=== PATIENT | male | born 1960 | race African-American/Black ===

== ENCOUNTER 2020-06-08 13:42 | Emergency (ER) | payer OTHER ==
[~2020-06-08] VITALS: Ht 188 cm; Wt 99.8 kg
[2020-06-08 14:42] VITALS: BP 146/94
[2020-06-08 15:36] LABS: Urine Bacteria FEW /hpf (None Seen); Urine Blood TRACE /uL (Negative); Urine Specific Gravity 1.019 (1.001-1.035); Urine WBC 3 /hpf (0 - 3)
[2020-06-08] MEDS ORDERED: cefTRIAXone SOD 1,000 MG VL IM ONE (16:00)
[2020-06-08] MEDS ORDERED: AZITHROMYCIN 250 MG TAB PO ONE (16:00)
[2020-06-08] MEDS ORDERED: LIDOCAINE 1% HCL (LOCAL ANESTH.) INJ 20ML MDV IJ ONE (16:30)
== END 2020-06-08 16:48 | disposition home or self-care (01) ==
LOC: ER 13:42
DX: N39.0 Urinary tract infection, site not specified (principal); F17.210 Nicotine dependence, cigarettes, uncomplicated; Z20.2 Contact with and (suspected) exposure to infections with a predominantly sexual mode of transmission; Z91.010 Allergy to peanuts
CPT/HCPCS: 81001; 96372; 99283; J0696

== ENCOUNTER 2022-02-17 08:49 | Inpatient (IN) | payer OTHER ==
[~2022-02-17] VITALS: Ht 193 cm; Wt 102.0 kg
[2022-02-17 10:13] LABS: Basophils # (auto) 0.1 10 ^3/uL (0-0.2); Basophils % (auto) 0.6 % (0.0-2.0); Eosinophils # (auto) 0.2 10 ^3/uL (0-0.8); Eosinophils % (auto) 1.8 % (0.0-7.0); Hematocrit 42.1 % (41.0-53.0); Hemoglobin 14.4 g/dL (13.5-17.5); Lymphocytes # (auto) 2.7 10 ^3/uL (0.4-5.4); Lymphocytes % (auto) 23.6 % (10.0-50.0); Mean Corpuscular Hemoglobin 32.6 pg (28.0-32.0); Mean Corpuscular Hgb Conc. 34.3 g/dL (32.0-36.0); Mean Corpuscular Volume 95.2 fL (80.0-100.0); Monocytes # (auto) 1.1 10 ^3/uL (0-1.3); Monocytes % (auto) 9.5 % (0.0-12.0); Neutrophils # (auto) 7.4 10 ^3/uL (1.6-8.6); Neutrophils % (auto) 64.5 % (37.0-80.0); Red Blood Cells 4.42 10^6/uL (4.5-5.90); Red Cell Distribution Width 12.9 % (11.8-14.3); White Blood Cell 11.4 10^3/uL (4.4-10.8)
[2022-02-17 10:34] LABS: Albumin 4.1 g/dL (3.4-5.0); Calcium 8.9 mg/dL (8.5-10.1); Potassium 4.3 mmol/L (3.5-5.1)
[2022-02-17 10:38] LABS: BUN/Creatinine Ratio 12.3; Bilirubin, Total 0.4 mg/dL (0.2-1.0); Total Protein 7.2 g/dL (6.4-8.2)
[2022-02-17] MEDS ORDERED: cefTRIAXone 1GM/50ML D5W 50 ML IV ONE (11:15)
[2022-02-17] MEDS ORDERED: CLINDAMYCIN 600MG IV 50 ML IV ONE (11:15)
[2022-02-17] MEDS ORDERED: DEXTROSE (50%) 50ML SYRG IV PRN (12:30)
[2022-02-17] MEDS ORDERED: DOCUSATE SOD 100 MG CAP PO PRN (12:30)
[2022-02-17] MEDS ORDERED: ONDANSETRON HCL 4 MG/2 ML VIAL IV PRN (12:30)
[2022-02-17] MEDS ORDERED: MORPHINE SULFATE INJ 2 MG/ml SYRG IV PRN (12:30)
[2022-02-17 13:06] LABS: INR 1.01 (0.9-1.15)
[2022-02-17] MEDS: ACCU-CHEK COMFORT CURVE STRIP VI SCH ×2 (17:00→22:00)
[2022-02-17] MEDS: InsuLIN REG 1unit/0.01ml Soln (100units/ml) SC SCH ×2 (17:00→22:49)
[2022-02-17] MEDS: SODIUM CHLORIDE 0.9% 1,000 ML IV SCH ×2 (20:50→22:51)
[2022-02-17] MEDS: HEPARIN SODIUM (PORCINE) 5000 UNITS/ML 1ML VIAL SC SCH (22:51)
[2022-02-18] MEDS: SODIUM CHLORIDE 0.9% 1,000 ML IV SCH ×3 (05:10→22:22)
[2022-02-18 05:17] LABS: Basophils # (auto) 0 10 ^3/uL (0-0.2); Basophils % (auto) 0.5 % (0.0-2.0); Eosinophils # (auto) 0.2 10 ^3/uL (0-0.8); Eosinophils % (auto) 2.5 % (0.0-7.0); Hematocrit 37.5 % (41.0-53.0); Hemoglobin 12.9 g/dL (13.5-17.5); Lymphocytes % (auto) 33.5 % (10.0-50.0); Mean Corpuscular Hemoglobin 32.9 pg (28.0-32.0); Mean Corpuscular Hgb Conc. 34.5 g/dL (32.0-36.0); Mean Corpuscular Volume 95.2 fL (80.0-100.0); Monocytes # (auto) 0.8 10 ^3/uL (0-1.3); Monocytes % (auto) 8.5 % (0.0-12.0); Nucleated Red Blood Cells % 0.1 %; Red Blood Cells 3.94 10^6/uL (4.5-5.90); Red Cell Distribution Width 12.7 % (11.8-14.3)
[2022-02-18 05:33] LABS: Albumin 3.4 g/dL (3.4-5.0); Calcium 8.8 mg/dL (8.5-10.1)
[2022-02-18 05:37] LABS: BUN/Creatinine Ratio 13.5; Bilirubin, Total 0.5 mg/dL (0.2-1.0); Total Protein 6.7 g/dL (6.4-8.2)
[2022-02-18] MEDS: ACCU-CHEK COMFORT CURVE STRIP VI SCH ×4 (07:58→22:12)
[2022-02-18] MEDS: InsuLIN REG 1unit/0.01ml Soln (100units/ml) SC SCH ×4 (07:59→22:38)
[2022-02-18 09:45] LABS: Creatinine, Urine 156 mg/dL (30.0-125.0); Sodium Urine 59 mmol/L (40-220)
[2022-02-18] MEDS ORDERED: ENOXAPARIN SOD 40 MG/0.4 ML SYRINGE SC SCH (10:00)
[2022-02-18] MEDS: HEPARIN SODIUM (PORCINE) 5000 UNITS/ML 1ML VIAL SC SCH ×2 (10:58→22:12)
[2022-02-18 14:30] VITALS: BP 124/83
[2022-02-18] MEDS ORDERED: ACETAMINOPHEN 325 MG TAB PO PRN (16:45)
[2022-02-18 22:00] VITALS: BP 150/91
[2022-02-18] MEDS: ACETAMINOPHEN 325 MG TAB PO PRN (22:28)
[2022-02-19 05:04] VITALS: BP 110/60
[2022-02-19] MEDS: ACCU-CHEK COMFORT CURVE STRIP VI SCH ×4 (06:06→22:13)
[2022-02-19] MEDS: InsuLIN REG 1unit/0.01ml Soln (100units/ml) SC SCH ×4 (06:06→22:13)
[2022-02-19] MEDS: SODIUM CHLORIDE 0.9% 1,000 ML IV SCH ×3 (06:10→22:50)
[2022-02-19 08:00] VITALS: BP 136/82
[2022-02-19] MEDS: DAKINS QUARTER STR 0.125% (NaHypochlorite) 473 ML TOPICAL SOL TOP SCH (09:33)
[2022-02-19] MEDS: HEPARIN SODIUM (PORCINE) 5000 UNITS/ML 1ML VIAL SC SCH ×2 (09:37→22:18)
[2022-02-19 12:00] VITALS: BP 122/72
[2022-02-19] MEDS: CLINDAMYCIN 300MG IV 50 ML IV SCH ×2 (15:29→22:12)
[2022-02-19 16:00] VITALS: BP 131/78
[2022-02-19 22:00] VITALS: BP 136/89
[2022-02-20] MEDS: DAKINS QUARTER STR 0.125% (NaHypochlorite) 473 ML TOPICAL SOL TOP SCH ×3 (01:44→22:34)
[2022-02-20 05:00] VITALS: BP 129/79
[2022-02-20] MEDS: CLINDAMYCIN 300MG IV 50 ML IV SCH (06:55)
[2022-02-20] MEDS: InsuLIN REG 1unit/0.01ml Soln (100units/ml) SC SCH ×4 (06:56→22:33)
[2022-02-20] MEDS: ACCU-CHEK COMFORT CURVE STRIP VI SCH ×4 (06:57→22:00)
[2022-02-20 09:00] VITALS: BP 133/80
[2022-02-20] MEDS: SODIUM CHLORIDE 0.9% 1,000 ML IV SCH (10:30)
[2022-02-20] MEDS: cefTRIAXone 1GM/50ML D5W 50 ML IV SCH (12:53)
[2022-02-20] MEDS: FLORASTOR (S. BOULARDII) 250 MG CAP PO SCH (12:55)
[2022-02-20] MEDS: ACETAMINOPHEN 325 MG TAB PO PRN (12:56)
[2022-02-20 13:00] VITALS: BP 144/96
[2022-02-20] MEDS: HEPARIN SODIUM (PORCINE) 5000 UNITS/ML 1ML VIAL SC SCH ×2 (13:15→22:31)
[2022-02-20] MEDS ORDERED: glipiZIDE 5 MG TAB PO ONE (13:45)
[2022-02-20 17:00] VITALS: BP 144/84
[2022-02-20 22:00] VITALS: BP 161/97
[2022-02-21 05:26] VITALS: BP 125/76
[2022-02-21 06:26] LABS: Basophils # (auto) 0.1 10 ^3/uL (0-0.2); Basophils % (auto) 0.8 % (0.0-2.0); Eosinophils # (auto) 0.2 10 ^3/uL (0-0.8); Eosinophils % (auto) 3.5 % (0.0-7.0); Hematocrit 39.7 % (41.0-53.0); Lymphocytes # (auto) 2.4 10 ^3/uL (0.4-5.4); Lymphocytes % (auto) 37.5 % (10.0-50.0); Mean Corpuscular Hemoglobin 31.6 pg (28.0-32.0); Mean Corpuscular Hgb Conc. 32.9 g/dL (32.0-36.0); Mean Corpuscular Volume 96.1 fL (80.0-100.0); Monocytes # (auto) 0.5 10 ^3/uL (0-1.3); Monocytes % (auto) 8.1 % (0.0-12.0); Neutrophils # (auto) 3.2 10 ^3/uL (1.6-8.6); Neutrophils % (auto) 50.1 % (37.0-80.0); Nucleated Red Blood Cells % 0.1 %; Red Blood Cells 4.13 10^6/uL (4.5-5.90); White Blood Cell 6.3 10^3/uL (4.4-10.8)
[2022-02-21 06:38] LABS: INR 1.05 (0.9-1.15); Partial Thromboplastin Time 29.9 sec (24.6-33.4)
[2022-02-21] MEDS: ACCU-CHEK COMFORT CURVE STRIP VI SCH ×4 (06:59→22:17)
[2022-02-21] MEDS: InsuLIN REG 1unit/0.01ml Soln (100units/ml) SC SCH ×4 (06:59→22:18)
[2022-02-21] MEDS: glipiZIDE 5 MG TAB PO SCH (07:01)
[2022-02-21 09:00] VITALS: BP 138/88
[2022-02-21] MEDS ORDERED: LIDOCAINE 1% (LOCAL ANESTH.) PF 5ml SDV ID ONE (09:45)
[2022-02-21] MEDS: DAKINS QUARTER STR 0.125% (NaHypochlorite) 473 ML TOPICAL SOL TOP SCH ×2 (10:00→22:01)
[2022-02-21] MEDS: FLORASTOR (S. BOULARDII) 250 MG CAP PO SCH (10:59)
[2022-02-21] MEDS: SODIUM CHLOR 0.9% PF (SALINE LOCK) 10ML VIAL/SYR IV SCH ×2 (10:59→22:10)
[2022-02-21] MEDS: cefTRIAXone 1GM/50ML D5W 50 ML IV SCH (10:59)
[2022-02-21] MEDS: HEPARIN SODIUM (PORCINE) 5000 UNITS/ML 1ML VIAL SC SCH ×2 (11:43→22:17)
[2022-02-21 13:00] VITALS: BP 132/76
[2022-02-21 21:55] VITALS: BP 159/98
[2022-02-21] MEDS: ACETAMINOPHEN 325 MG TAB PO PRN (22:23)
[2022-02-22 04:46] VITALS: BP 136/83
[2022-02-22] MEDS: glipiZIDE 5 MG TAB PO SCH (06:02)
[2022-02-22] MEDS: ACCU-CHEK COMFORT CURVE STRIP VI SCH ×2 (06:03→14:27)
[2022-02-22] MEDS: InsuLIN REG 1unit/0.01ml Soln (100units/ml) SC SCH ×2 (06:04→11:30)
[2022-02-22 09:00] VITALS: BP 148/89
[2022-02-22] MEDS: SODIUM CHLOR 0.9% PF (SALINE LOCK) 10ML VIAL/SYR IV SCH (10:07)
[2022-02-22] MEDS: FLORASTOR (S. BOULARDII) 250 MG CAP PO SCH (10:08)
[2022-02-22] MEDS: cefTRIAXone 1GM/50ML D5W 50 ML IV SCH (10:08)
[2022-02-22] MEDS: DAKINS QUARTER STR 0.125% (NaHypochlorite) 473 ML TOPICAL SOL TOP SCH (10:09)
[2022-02-22] MEDS: HEPARIN SODIUM (PORCINE) 5000 UNITS/ML 1ML VIAL SC SCH (10:09)
[2022-02-22 13:00] VITALS: BP 135/90
[2022-02-22] MEDS ORDERED: GLIP5TAB12 PO (15:58)
[2022-02-22] MEDS ORDERED: GLIM4TAB PO (15:58)
[2022-02-22 16:55] VITALS: BP 137/87
[2022-02-22] MEDS ORDERED: Juven Fruit Punch Powder PACKET 28.8gm PO SCH (18:00)
== END 2022-02-22 17:00 | disposition home health service (06) | DRG 344 ==
LOC: ER 08:53 → OVERFLOW 12:17 → EAST 02-18 14:30 → CENTRAL 02-18 17:18
PROVIDERS: ADMIT Nurse Practitioner Family; ATTEND Internal Medicine
PROC: 02HV33Z Insertion of Infusion Device into Superior Vena Cava, Percutaneous Approach (ICD-10-PCS; principal; 2022-02-21)
PROC: B548ZZA Ultrasonography of Superior Vena Cava, Guidance (ICD-10-PCS; 2022-02-21)
DX: E11.69 Type 2 diabetes mellitus with other specified complication (principal); M86.171 Other acute osteomyelitis, right ankle and foot; N17.9 Acute kidney failure, unspecified; E11.22 Type 2 diabetes mellitus with diabetic chronic kidney disease; L03.115 Cellulitis of right lower limb; E11.621 Type 2 diabetes mellitus with foot ulcer; L97.509 Non-pressure chronic ulcer of other part of unspecified foot with unspecified severity; L03.031 Cellulitis of right toe; E11.65 Type 2 diabetes mellitus with hyperglycemia; F17.210 Nicotine dependence, cigarettes, uncomplicated; Z20.822 Contact with and (suspected) exposure to COVID-19; I12.9 Hypertensive chronic kidney disease with stage 1 through stage 4 chronic kidney disease, or unspecified chronic kidney disease; N18.9 Chronic kidney disease, unspecified; Z83.3 Family history of diabetes mellitus; Z91.010 Allergy to peanuts
CPT/HCPCS: 36415; 36569; 71045; 73700; 80053; 82570; 82962; 83036; 83605; 84300; 85025; 85610; 85652; 85730; 86141; 87040; 87077; 87186; 87205; 87426; 93926; 93971; G0378; J0696; J1815; J3490

== ENCOUNTER 2023-10-13 23:24 | Emergency (ER) | payer MEDICAID, OTHER ==
[~2023-10-13] VITALS: Ht 188 cm; Wt 99.3 kg
[~2023-10-13 23:24] MED LIST: GLIM4TAB PO; GLIP5TAB21 PO
[2023-10-13 23:32] VITALS: BP 132/77; PULSE 87; RESP 17; O2SAT 97
[2023-10-14] MEDS ORDERED: PIPERACILLIN-TAZO 4.5GM 100 ML IV ONE (00:45)
[2023-10-14 01:08] LABS: Basophils # (auto) 0.1 10 ^3/uL (0-0.2); Basophils % (auto) 0.4 % (0.0-2.0); Eosinophils # (auto) 0.2 10 ^3/uL (0-0.8); Eosinophils % (auto) 1.5 % (0.0-7.0); Hematocrit 37.3 % (41.0-53.0); Hemoglobin 12.9 g/dL (13.5-17.5); Lymphocytes # (auto) 3.7 10 ^3/uL (0.4-5.4); Lymphocytes % (auto) 27.3 % (10.0-50.0); Mean Corpuscular Hemoglobin 32.6 pg (28.0-32.0); Mean Corpuscular Hgb Conc. 34.5 g/dL (32.0-36.0); Mean Corpuscular Volume 94.6 fL (80.0-100.0); Monocytes # (auto) 0.9 10 ^3/uL (0-1.3); Monocytes % (auto) 6.7 % (0.0-12.0); Neutrophils # (auto) 8.6 10 ^3/uL (1.6-8.6); Neutrophils % (auto) 64.1 % (37.0-80.0); Platelet Count (auto) 388 10^3/uL (140-450); Red Blood Cells 3.94 10^6/uL (4.5-5.90); White Blood Cell 13.4 10^3/uL (4.4-10.8)
[2023-10-14 01:24] LABS: Alanine Aminotransferase 19 U/L (7-40); Albumin 4.2 g/dL (3.2-4.8); Alkaline Phosphatase 98 U/L (46-116); Anion Gap 4 (5-15); Aspartate Aminotransferase 16 U/L (13-40); BUN/Creatinine Ratio 10.3 (10.0-20.0); Blood Urea Nitrogen 15 mg/dL (9-23); Calcium 9.7 mg/dL (8.7-10.4); Carbon Dioxide 24 mmol/L (20-30); Chloride 109 mmol/L (98-107); Glucose 137 mg/dL (74-106); Potassium 3.8 mmol/L (3.5-5.1); Sodium 137 mmol/L (136-145)
[2023-10-14 01:25] LABS: Bilirubin, Total 0.2 mg/dL (0.2-1.0); Total Protein 7.3 g/dL (5.7-8.2)
[2023-10-14 01:48] LABS: CRP High Sensitivity 1.44 mg/dL (<1.0)
[2023-10-14 01:51] LABS: Erythrocyte Sedimentation Rate 48 mm/hr (0-20)
== END 2023-10-14 04:07 | disposition left against medical advice (07) ==
LOC: ER 23:24
DX: L97.519 Non-pressure chronic ulcer of other part of right foot with unspecified severity (principal); E11.621 Type 2 diabetes mellitus with foot ulcer; L03.115 Cellulitis of right lower limb; E11.9 Type 2 diabetes mellitus without complications; F17.210 Nicotine dependence, cigarettes, uncomplicated; Z98.890 Other specified postprocedural states; Z79.84 Long term (current) use of oral hypoglycemic drugs; Z91.040 Latex allergy status
CPT/HCPCS: 36415; 73700; 80053; 83605; 85025; 85652; 86141

== ENCOUNTER 2024-01-16 09:38 | Emergency (ER) | payer MEDICAID, OTHER ==
[~2024-01-16] VITALS: Ht 188 cm; Wt 99.1 kg
[~2024-01-16 09:38] MED LIST changes: +IBUP-1455 PO; +LEVO750T40 PO
[2024-01-16] MEDS: HYDROcodone-ACET 5/325MG TAB PO ONE (12:22)
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
[2024-01-16 12:47] VITALS: BP 140/80; PULSE 80; RESP 16; TEMP 98.6; O2SAT 98
[2024-01-16] MEDS ORDERED: IBUP-1454 PO (12:48)
[2024-01-16] MEDS ORDERED: CYCL-839 PO (12:48)
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
== END 2024-01-16 13:05 | disposition home or self-care (01) ==
LOC: ER 09:38
DX: R07.89 Other chest pain (principal); E11.9 Type 2 diabetes mellitus without complications; I10 Essential (primary) hypertension; F17.210 Nicotine dependence, cigarettes, uncomplicated; Z88.8 Allergy status to other drugs, medicaments and biological substances; V89.2XXA Person injured in unspecified motor-vehicle accident, traffic, initial encounter; Y93.89 Activity, other specified; Y92.89 Other specified places as the place of occurrence of the external cause; Y99.8 Other external cause status
CPT/HCPCS: 70450; 71045